=== PATIENT | male | born 1960 | race Caucasian/White ===

== ENCOUNTER 2018-06-20 05:40 | Inpatient (IN) | payer OTHER ==
[~2018-06-20] VITALS: Ht 185.4 cm; Wt 91.6 kg
[~2018-06-20 05:40] MED LIST: MOME17SP NAS; MULT-257 PO; NAPR220T77 PO
[2018-06-20] MEDS ORDERED: LACTATED RINGERS 1,000 ML IV SCH (06:21)
[2018-06-20 06:24] VITALS: BP 134/81
[2018-06-20] MEDS ORDERED: VANCOMYCIN 1,000 MG ONE ×2 (07:08→10:39)
[2018-06-20] MEDS ORDERED: BUPIVACAINE/PF-EPI 0.5% 1:200K ONE (07:08)
[2018-06-20] MEDS ORDERED: EPINEPHRINE 1 MG/ML, 1ML ONE (07:08)
[2018-06-20] MEDS ORDERED: HEPARIN 1,000 UNITS/ML, 30ML ONE (07:08)
[2018-06-20] MEDS ORDERED: THROMBIN 20,000 UNIT VIAL TP ONE (07:08)
[2018-06-20] MEDS ORDERED: LIDOCAINE 1%, 20ML ONE (07:09)
[2018-06-20] MEDS ORDERED: BACITRACIN 50,000 UNIT ONE (07:09)
[2018-06-20] MEDS ORDERED: MIDAZOLAM 1 MG/ML, 2ML ONE (07:19)
[2018-06-20] MEDS ORDERED: FENTANYL PF 250 MCG/5ML ONE (07:19)
[2018-06-20] MEDS ORDERED: PHENYLEPHRINE 10 MG/ML ONE (07:32)
[2018-06-20] MEDS ORDERED: KETAMINE 10 MG/ML, 20ML ONE (07:32)
[2018-06-20] MEDS ORDERED: MEPERIDINE/PF 25MG/0.5ML IVPush PRN (08:30)
[2018-06-20] MEDS ORDERED: PROMETHAZINE 25 MG/ML, 1ML IV PRN (08:30)
[2018-06-20] MEDS ORDERED: hydrALAzine 20 MG/ML, 1ML IV PRN (08:30)
[2018-06-20] MEDS ORDERED: DIAZEPAM 5 MG/ML, 2ML IVPush PRN (08:30)
[2018-06-20] MEDS ORDERED: HALOPERIDOL 5 MG/ML IV PRN (08:30)
[2018-06-20] MEDS ORDERED: HYDROmorphone 2 MG/ML, 1ML IVPush PRN (08:30)
[2018-06-20] MEDS ORDERED: ACETAMINOPHEN 325 MG TABLET PO PRN (08:30)
[2018-06-20] MEDS ORDERED: OXYcodone 5 MG/5 ML ORAL.SOL UDC PO PRN (08:30)
[2018-06-20] MEDS ORDERED: ONDANSETRON 2MG/ML, 2ML ONE (08:37)
[2018-06-20] MEDS ORDERED: ROCURONIUM 10MG/ML,5ML ONE (08:37)
[2018-06-20] MEDS ORDERED: PROPOFOL 10 MG/ML, 20ML ONE (08:37)
[2018-06-20] MEDS ORDERED: LIDOCAINE-MPF 2% ,5ML ONE (08:37)
[2018-06-20] MEDS ORDERED: DEXAMETHASONE 4 MG/ML, 1ML ONE (08:37)
[2018-06-20] MEDS ORDERED: CEFAZOLIN 1,000 MG ONE (08:37)
[2018-06-20] MEDS ORDERED: WATER-INJECTION,STERILE 10 ML IV ONE (08:37)
[2018-06-20] MEDS ORDERED: FENTANYL PF 100 MCG/2ML ONE (10:22)
[2018-06-20] MEDS: FENTANYL PF 100 MCG/2ML IV PRN ×4 (10:25→11:00)
[2018-06-20] MEDS ORDERED: METHOCARBAMOL 1,000 MG in DEXTROSE 5% 100 ML IV ONE (10:30)
[2018-06-20] MEDS: D5%-0.9% NACL+KCL 20MEQ 1,000 ML IV SCH ×2 (11:15→21:46)
[2018-06-20 11:35] VITALS: BP 102/62
[2018-06-20] MEDS ORDERED: DIPHENHYDRAMINE 50 MG/ML, 1ML IVPush PRN (12:30)
[2018-06-20] MEDS ORDERED: DIPHENHYDRAMINE 50 MG CAPSULE PO PRN (12:30)
[2018-06-20] MEDS ORDERED: ONDANSETRON 2MG/ML, 2ML IV PRN (12:30)
[2018-06-20] MEDS ORDERED: METHOCARBAMOL 750 MG TABLET PO PRN (12:30)
[2018-06-20] MEDS ORDERED: PROMETHAZINE 25 MG/ML, 1ML IM PRN (12:30)
[2018-06-20] MEDS ORDERED: DIPHENHYDRAMINE 50 MG/ML, 1ML IM PRN (12:30)
[2018-06-20] MEDS ORDERED: MAGNESIUM HYDROXIDE 8%, 30ML UDC PO PRN (12:30)
[2018-06-20] MEDS ORDERED: BISACODYL 10 MG SUPP PR PRN (12:30)
[2018-06-20] MEDS ORDERED: HYDROcodone/APAP 5/325 TABLET PO PRN (12:30)
[2018-06-20] MEDS: METOCLOPRAMIDE 5 MG/ML, 2ML IV SCH ×2 (12:50→18:06)
[2018-06-20 14:42] VITALS: BP 104/49
[2018-06-20] MEDS: CEFAZOLIN PMX 1GM/50ML 50 ML IVPB SCH ×2 (15:16→23:20)
[2018-06-20] MEDS: METHOCARBAMOL 750 MG in DEXTROSE 5% 100 ML IV SCH (18:06)
[2018-06-20] MEDS: SENNA/DOCUSATE TABLET PO SCH (19:28)
[2018-06-20 20:10] VITALS: BP 110/64
[2018-06-21 00:01] VITALS: BP 105/61
[2018-06-21] MEDS: METHOCARBAMOL 750 MG in DEXTROSE 5% 100 ML IV SCH ×3 (01:48→17:54)
[2018-06-21 04:16] VITALS: BP 102/61
[2018-06-21] MEDS: ENOXAPARIN 30 MG/0.3 ML SQ SCH ×2 (06:15→17:54)
[2018-06-21 08:18] VITALS: BP 93/50
[2018-06-21] MEDS: SENNA/DOCUSATE TABLET PO SCH ×2 (09:00→21:10)
[2018-06-21] MEDS: HYDROcodone/APAP 10/325 MG TABLET PO PRN ×3 (10:25→21:11)
[2018-06-21] MEDS: D5%-0.9% NACL+KCL 20MEQ 1,000 ML IV SCH ×2 (10:28→21:10)
[2018-06-21 13:05] VITALS: BP 111/64
[2018-06-21 19:30] VITALS: BP 108/61
[2018-06-22] MEDS: METHOCARBAMOL 750 MG in DEXTROSE 5% 100 ML IV SCH ×2 (01:43→10:21)
[2018-06-22] MEDS: HYDROcodone/APAP 10/325 MG TABLET PO PRN ×5 (01:43→21:17)
[2018-06-22 01:47] VITALS: BP 100/52
[2018-06-22] MEDS: ENOXAPARIN 30 MG/0.3 ML SQ SCH ×2 (05:57→18:27)
[2018-06-22] MEDS: SENNA/DOCUSATE TABLET PO SCH ×2 (08:20→21:17)
[2018-06-22 08:21] VITALS: BP 148/60
[2018-06-22] MEDS: D5%-0.9% NACL+KCL 20MEQ 1,000 ML IV SCH ×2 (09:46→18:27)
[2018-06-22 12:22] LABS: CREATININE 0.84 mg/dL (0.7-1.3)
[2018-06-22 12:39] VITALS: BP 122/71
[2018-06-22] MEDS: METHOCARBAMOL 750 MG TABLET PO SCH (18:27)
[2018-06-22 19:47] VITALS: BP 134/62
[2018-06-23 00:09] VITALS: BP 127/69
[2018-06-23] MEDS: METHOCARBAMOL 750 MG TABLET PO SCH (01:53)
[2018-06-23] MEDS: D5%-0.9% NACL+KCL 20MEQ 1,000 ML IV SCH (03:23)
[2018-06-23] MEDS: HYDROcodone/APAP 10/325 MG TABLET PO PRN ×2 (04:02→08:29)
[2018-06-23] MEDS: ENOXAPARIN 30 MG/0.3 ML SQ SCH (06:19)
[2018-06-23 06:36] VITALS: BP 127/73
[2018-06-23] MEDS: SENNA/DOCUSATE TABLET PO SCH (08:29)
[2018-06-23] MEDS ORDERED: METH750T87 PO (08:42)
[2018-06-23] MEDS ORDERED: HYDR-3307 PO (08:42)
[2018-06-23] MEDS ORDERED: ENOX40SY4 SQ (08:43)
== END 2018-06-23 09:19 | disposition home or self-care (01) | DRG 460 ==
LOC: ORIP 05:40 → 4NOR 11:32 → DCLOUNGE 06-23 09:05
PROVIDERS: ADMIT Orthopaedic Surgery Orthopaedic Surgery of the Spine; ATTEND Orthopaedic Surgery Orthopaedic Surgery of the Spine
PROC: 0SG30A0 Fusion of Lumbosacral Joint with Interbody Fusion Device, Anterior Approach, Anterior Column, Open Approach (ICD-10-PCS; 2018-06-20)
PROC: 0SG00A0 Fusion of Lumbar Vertebral Joint with Interbody Fusion Device, Anterior Approach, Anterior Column, Open Approach (ICD-10-PCS; 2018-06-20)
PROC: 0SB20ZZ Excision of Lumbar Vertebral Disc, Open Approach (ICD-10-PCS; 2018-06-20)
PROC: 0SB40ZZ Excision of Lumbosacral Disc, Open Approach (ICD-10-PCS; principal; 2018-06-20 07:30)
DX: M48.061 Spinal stenosis, lumbar region without neurogenic claudication (principal); M51.17 Intervertebral disc disorders with radiculopathy, lumbosacral region; M47.26 Other spondylosis with radiculopathy, lumbar region; M41.87 Other forms of scoliosis, lumbosacral region; G89.4 Chronic pain syndrome
CPT/HCPCS: 36415; 72100; 74018; J3490; 82565; C1713; G0378; J0171; J0690; J1100; J1644; J1650; J2250; J2270; J2405; J2704; J3010; J3370; C1762; J2370; J2765; J2800; J3480; J7120